=== PATIENT | male | born 1975 | race Two or more races ===

== ENCOUNTER 2019-10-20 10:30 | Emergency (ER) | payer SELFPAY ==
[~2019-10-20] VITALS: Ht 172.7 cm; Wt 90.7 kg
[2019-10-20 10:42] VITALS: BP 138/90
--- NOTE | 2019-10-20 10:47 | NUR ---
CATHY PEREZ Escorted by Officer Ruperto was released to own recognizance for back pain back pain". as soon as ANA left Pt refused to be seen at this time- Romina
== END 2019-10-20 11:16 | disposition left against medical advice (07) ==
LOC: ER 10:33
DX: Z53.21 Procedure and treatment not carried out due to patient leaving prior to being seen by health care provider (principal)